=== PATIENT | female | born 1965 | race Caucasian/White ===

== ENCOUNTER 2022-01-28 18:11 | Emergency (ER) | payer BC ==
[2022-01-28] MEDS ORDERED: GI Cocktail Oral Solution 30 ML PO ONE (18:56)
[2022-01-28 19:35] LABS: ANION GAP 14.7 mEq/L (7-13); CHLORIDE,CL 105 mmol/L (98-107); SODIUM,NA 142 mmol/L (136-145)
[2022-01-28] MEDS ORDERED: Aspirin 81 MG Tab.Chew PO ONE (20:37)
[2022-01-28] MEDS ORDERED: Meclizine 12.5 MG Tab PO ONE (20:53)
== END 2022-01-28 23:09 | disposition home or self-care (01) ==
LOC: DL.ED 18:11
DX: R07.89 Other chest pain (principal); R42 Dizziness and giddiness; E05.90 Thyrotoxicosis, unspecified without thyrotoxic crisis or storm; Z91.041 Radiographic dye allergy status; Z79.899 Other long term (current) drug therapy
CPT/HCPCS: 36415; 71045; 80053; 81001; 82150; 83605; 83690; 83880; 84484; 85025; 86140; 87086; 93005; 93010; 99285; 99285-25; A9270-GY